=== PATIENT | male | born 1940 | race Caucasian/White ===

== ENCOUNTER 2017-12-02 16:37 | Outpatient (REF) | payer MEDICARE, MEDICAID, SELFPAY ==
[2017-12-02 21:56] LABS: Absolute Basophil Count 0.01 k/cumm (0.0-0.2); Absolute Lymphocyte Count 0.54 k/cumm (1.2-3.4); Absolute Monocyte Count 0.43 k/cumm (0.11-0.7); Absolute Neutrophil Count 4.64 k/cumm (1.2-6.7); Basophils % 0.2; HCT 35.9 % (40.0-50.0); Lymphocytes % 9.6; Mean Corp. HGB Concentration 33.4 g/dL (32.0-36.0); Mean Corpuscular Hemoglobin 30.6 pg (27.0-33.0); Mean Corpuscular Volume 91.6 fL (80-95); Mean Platelet Volume 9.5 fL (8.0-11.0); Monocytes % 7.7; Neutrophils % 82.5; Platelet Count 282 x1000/uL (130-400); RBC 3.92 m/cumm (4.50-6.00); RBC Distribution Width 12.9 % (11.8-14.1); White Blood Cell Count 5.62 k/cumm (4.4-10.8)
[2017-12-02 22:34] LABS: ALT 14 U/L (12-78); AST 14 U/L (15-37); Albumin 3.6 g/dL (3.4-5.0); Alkaline Phosphatase 154 U/L (46-116); BUN 10 mg/dL (7-18); Bilirubin, Total 0.3 mg/dL (0.2-1.0); CREATININE 0.82 mg/dL (0.70-1.30); Calcium 8.2 mg/dL (8.5-10.1); Chloride 93 mmol/L (98-107); Ferritin 47 ng/mL (8-388); Glucose 82 mg/dL (70-100); Potassium 4.8 mmol/L (3.5-5.1); Sodium 129 mmol/L (136-145); Total Protein 6.9 g/dL (6.4-8.2); Vitamin B12 919 pg/mL (193-986)
== END 2017-12-02 16:57 ==
LOC: NCHCN 16:37
PROVIDERS: PCP Family Medicine; Referring Provider Family Medicine; Visit Provider Family Medicine
DX: D64.9 Anemia, unspecified (principal); D72.819 Decreased white blood cell count, unspecified; E87.1 Hypo-osmolality and hyponatremia; F20.9 Schizophrenia, unspecified
CPT/HCPCS: 80053; 82607; 82728; 82746; 85025

== ENCOUNTER 2019-01-07 09:23 | Outpatient (REF) | payer MEDICARE, MEDICAID, SELFPAY ==
[2019-01-07 18:59] LABS: HGB 11.5 g/dL (13.5-17.5); Mean Corp. HGB Concentration 33.8 g/dL (32.0-36.0); Mean Corpuscular Volume 88.8 fL (80-95); Mean Platelet Volume 9.7 fL (8.0-11.0); Platelet Count 254 x1000/uL (130-400); RBC 3.83 m/cumm (4.50-6.00); RBC Distribution Width 12.8 % (11.8-14.1); White Blood Cell Count 4.08 k/cumm (4.4-10.8)
[2019-01-07 19:09] LABS: ALT 13 U/L (16-63); AST 11 U/L (15-37); Albumin 3.4 g/dL (3.4-5.0); Alkaline Phosphatase 131 U/L (46-116); Anion Gap 8.4 mmol/L (3-11); BUN 8 mg/dL (7-18); Bilirubin, Total 0.5 mg/dL (0.2-1.0); CO2 25.6 mmol/L (21.0-32.0); CREATININE 0.98 mg/dL (0.70-1.30); Calcium 8.3 mg/dL (8.5-10.1); Chloride 94 mmol/L (98-107); Glucose 130 mg/dL (70-100); Potassium 4.2 mmol/L (3.5-5.1); Sodium 128 mmol/L (136-145)
[2019-01-11 11:20] LABS: PSA, Screening 0.6 ng/ml (0-6.5)
== END 2019-01-07 09:43 ==
LOC: NCHCN 09:23
PROVIDERS: PCP Family Medicine; Visit Provider Family Medicine
DX: I10 Essential (primary) hypertension (principal); D64.9 Anemia, unspecified; E87.1 Hypo-osmolality and hyponatremia; R35.8 Other polyuria; Z12.5 Encounter for screening for malignant neoplasm of prostate
CPT/HCPCS: 80053; 84153; 85027

== ENCOUNTER 2019-01-21 20:19 | Outpatient (REF) | payer MEDICARE, MEDICAID, SELFPAY ==
[2019-01-21 20:22] LABS: Bilirubin Negative (Negative); Blood Negative (Negative); Clarity Clear (Clear); Glucose Negative (Negative); Ketones Negative (Negative); Leukocyte Esterase Negative (Negative); Nitrite Negative (Negative); Specific Gravity 1.015 (1.005-1.025); Urobilinogen 0.2 EU/dL (Up TO 0.2); pH 7.5 (5-8)
== END 2019-01-21 20:39 ==
LOC: NCHCN 20:19
PROVIDERS: PCP Family Medicine; Visit Provider Family Medicine
DX: R35.8 Other polyuria (principal)
CPT/HCPCS: 81003

== ENCOUNTER 2019-02-22 08:50 | Outpatient (REF) | payer MEDICARE, MEDICAID, SELFPAY ==
[2019-02-22 21:49] LABS: HGB 12.6 g/dL (13.5-17.5)
[2019-02-22 22:30] LABS: Ferritin 55 ng/mL (26-388); Folate 9.7 ng/mL (8.6-20.0); Vitamin B12 651 pg/mL (193-986)
== END 2019-02-22 09:10 ==
LOC: NCHCN 08:50
PROVIDERS: PCP Family Medicine; Visit Provider Family Medicine
DX: D64.9 Anemia, unspecified (principal)
CPT/HCPCS: 82607; 82728; 82746; 85018

== ENCOUNTER 2019-10-07 12:23 | Outpatient (REF) | payer MEDICARE, MEDICAID, SELFPAY ==
[2019-10-07 19:36] LABS: HCT 32.5 % (40.0-50.0); MCH 31.2 pg (27.0-33.0); MCHC 33.8 % (32.0-36.0); MCV 92.1 fL (80-95); MPV 10.9 fL (8.0-11.0); Platelet Count 253 10^3/uL (130-400); RBC 3.53 10^6/uL (4.36-5.78); RDW 15.4 % (11.8-14.1); RDW-SD 51.6 fL; WBC 4.74 10^3/uL (4.4-10.8)
[2019-10-07 20:32] LABS: ALT 218 U/L (16-63); AST 150 U/L (15-37); Albumin 3.1 g/dL (3.4-5.0); Anion Gap 9.5 mmol/L (3-11); BUN 14 mg/dL (7-18); Bilirubin, Total 4.8 mg/dL (0.2-1.0); CO2 24.5 mmol/L (21.0-32.0); CREATININE 0.81 mg/dL (0.70-1.30); Calcium 8.6 mg/dL (8.5-10.1); Chloride 100 mmol/L (98-107); Glucose 84 mg/dL (74-106); Potassium 4.2 mmol/L (3.5-5.1); Sodium 134 mmol/L (136-145); Total Protein 6.6 g/dL (6.4-8.2)
[2019-10-07 20:46] LABS: Alkaline Phosphatase 1181 U/L (46-116)
== END 2019-10-07 12:43 ==
LOC: NCHCN 12:23
PROVIDERS: PCP Family Medicine; Visit Provider Family Medicine
DX: D64.9 Anemia, unspecified (principal); I10 Essential (primary) hypertension
CPT/HCPCS: 80053; 85027

== ENCOUNTER 2019-11-18 13:56 | Outpatient (REF) | payer MEDICARE, MEDICAID, SELFPAY ==
[2019-11-18 20:02] LABS: Abs Immature Grans 0.02 10^3/uL (0.0-0.06); Absolute Basophil Count 0.03 10^3/uL (0.0-0.2); Absolute Lymphocyte Count 0.39 10^3/uL (1.2-3.4); Absolute Monocyte Count 0.42 10^3/uL (0.1-0.8); Absolute Neutrophil Count 4.37 10^3/uL (1.2-6.7); Basophils % 0.6; HCT 30.6 % (40.0-50.0); HGB 10.3 g/dL (13.5-17.5); Immature Grans % 0.4; Lymphocytes % 7.5; MCH 31.9 pg (27.0-33.0); MCHC 33.7 % (32.0-36.0); MCV 94.7 fL (80-95); MPV 11.1 fL (8.0-11.0); Neutrophils % 83.5; Nucleated RBC 0 %; Platelet Count 242 10^3/uL (130-400); RBC 3.23 10^6/uL (4.36-5.78); RDW 15.1 % (11.8-14.1); RDW-SD 52.6 fL; WBC 5.23 10^3/uL (4.4-10.8)
[2019-11-18 20:22] LABS: ALT 146 U/L (16-63); AST 120 U/L (15-37); Albumin 2.5 g/dL (3.4-5.0); Alkaline Phosphatase 953 U/L (46-116); Anion Gap 6.3 mmol/L (3-11); BUN 11 mg/dL (7-18); Bilirubin, Total 6.8 mg/dL (0.2-1.0); CO2 28.7 mmol/L (21.0-32.0); Calcium 7.8 mg/dL (8.5-10.1); Chloride 99 mmol/L (98-107); Glucose 119 mg/dL (74-106); Lipase 43 U/L (73-393); Potassium 3.4 mmol/L (3.5-5.1); Sodium 134 mmol/L (136-145); Total Protein 6.1 g/dL (6.4-8.2)
== END 2019-11-18 14:16 ==
LOC: NCHCN 13:56
PROVIDERS: PCP Family Medicine; Visit Provider Family Medicine
DX: D64.9 Anemia, unspecified (principal); I10 Essential (primary) hypertension; R79.89 Other specified abnormal findings of blood chemistry
CPT/HCPCS: 80053; 83690; 85025

== ENCOUNTER 2020-02-01 04:14 | Outpatient (CLI) | payer MEDICARE, MEDICAID, SELFPAY ==
[2020-02-01 11:14] LABS: ALT 48 U/L (16-63); AST 36 U/L (15-37); Albumin 3.3 g/dL (3.4-5.0); Alkaline Phosphatase 362 U/L (46-116); Anion Gap 6.6 mmol/L (3-11); BUN 13 mg/dL (7-18); CO2 28.4 mmol/L (21.0-32.0); CREATININE 0.94 mg/dL (0.70-1.30); Calcium 8.4 mg/dL (8.5-10.1); Chloride 98 mmol/L (98-107); Glucose 104 mg/dL (74-106); Potassium 4.3 mmol/L (3.5-5.1); Sodium 133 mmol/L (136-145); Total Protein 7.3 g/dL (6.4-8.2)
== END 2020-02-01 04:34 ==
PROVIDERS: PCP Family Medicine; Visit Provider Internal Medicine Hematology & Oncology
DX: C22.1 Intrahepatic bile duct carcinoma (principal)
CPT/HCPCS: 36415; 80053

== ENCOUNTER 2020-02-22 02:51 | Outpatient (CLI) | payer MEDICARE, MEDICAID, SELFPAY ==
[2020-02-22 12:33] LABS: Abs Immature Grans 0.02 10^3/uL (0.0-0.06); Absolute Basophil Count 0.01 10^3/uL (0.0-0.2); Absolute Monocyte Count 0.45 10^3/uL (0.1-0.8); Absolute Neutrophil Count 3.68 10^3/uL (1.2-6.7); Basophils % 0.2; HCT 30.1 % (40.0-50.0); HGB 10.8 g/dL (13.5-17.5); Immature Grans % 0.4; Lymphocytes % 8.8; MCH 30.7 pg (27.0-33.0); MCHC 35.9 % (32.0-36.0); MCV 85.5 fL (80-95); MPV 10.2 fL (8.0-11.0); Monocytes % 9.9; Neutrophils % 80.7; Nucleated RBC 0 %; Platelet Count 253 10^3/uL (130-400); RBC 3.52 10^6/uL (4.36-5.78); RDW 16.7 % (11.8-14.1); RDW-SD 50.7 fL; WBC 4.56 10^3/uL (4.4-10.8)
[2020-02-22 12:54] LABS: ALT 245 U/L (16-63); AST 172 U/L (15-37); Albumin 2.5 g/dL (3.4-5.0); Anion Gap 6.9 mmol/L (3-11); BUN 13 mg/dL (7-18); CO2 26.1 mmol/L (21.0-32.0); CREATININE 0.77 mg/dL (0.70-1.30); Calcium 8.2 mg/dL (8.5-10.1); Chloride 100 mmol/L (98-107); Glucose 95 mg/dL (74-106); Potassium 3.2 mmol/L (3.5-5.1); Sodium 133 mmol/L (136-145); Total Protein 6.5 g/dL (6.4-8.2)
[2020-02-22 13:03] LABS: Alkaline Phosphatase 1155 U/L (46-116)
[2020-02-22 13:04] LABS: Bilirubin, Total 24.9 mg/dL (0.2-1.0)
== END 2020-02-22 03:11 ==
PROVIDERS: PCP Family Medicine; Visit Provider Internal Medicine Hematology & Oncology
DX: C22.1 Intrahepatic bile duct carcinoma (principal)
CPT/HCPCS: 36415; 80053; 85025

== ENCOUNTER 2020-03-14 03:20 | Outpatient (CLI) | payer MEDICARE, MEDICAID, SELFPAY ==
[2020-03-14 13:30] LABS: Abs Immature Grans 0.02 10^3/uL (0.0-0.06); Absolute Basophil Count 0.06 10^3/uL (0.0-0.2); Absolute Eosinophil Count 0.04 10^3/uL (0.0-0.7); Absolute Lymphocyte Count 0.66 10^3/uL (1.2-3.4); Absolute Monocyte Count 0.44 10^3/uL (0.1-0.8); Absolute Neutrophil Count 3.17 10^3/uL (1.2-6.7); Basophils % 1.4; Eosinophils % 0.9; HCT 32.9 % (40.0-50.0); HGB 10.9 g/dL (13.5-17.5); Immature Grans % 0.5; MCH 31.6 pg (27.0-33.0); MCHC 33.1 % (32.0-36.0); MCV 95.4 fL (80-95); MPV 9.6 fL (8.0-11.0); Neutrophils % 72.2; Nucleated RBC 0 %; Platelet Count 278 10^3/uL (130-400); RBC 3.45 10^6/uL (4.36-5.78); RDW 15.9 % (11.8-14.1); RDW-SD 55.9 fL; WBC 4.39 10^3/uL (4.4-10.8)
[2020-03-14 13:50] LABS: ALT 60 U/L (16-63); AST 50 U/L (15-37); Albumin 2.8 g/dL (3.4-5.0); Alkaline Phosphatase 362 U/L (46-116); Anion Gap 4.3 mmol/L (3-11); BUN 18 mg/dL (7-18); CO2 27.7 mmol/L (21.0-32.0); Calcium 8.2 mg/dL (8.5-10.1); Chloride 99 mmol/L (98-107); Glucose 126 mg/dL (74-106); Potassium 4.6 mmol/L (3.5-5.1); Sodium 131 mmol/L (136-145)
== END 2020-03-14 03:40 ==
PROVIDERS: PCP Family Medicine; Visit Provider Internal Medicine Hematology & Oncology
DX: C22.1 Intrahepatic bile duct carcinoma (principal)
CPT/HCPCS: 36415; 80053; 85025

== ENCOUNTER 2020-04-11 03:15 | Outpatient (CLI) | payer MEDICARE, MEDICAID, SELFPAY ==
[2020-04-11 09:36] LABS: Abs Immature Grans 0.01 10^3/uL (0.0-0.06); Absolute Basophil Count 0.03 10^3/uL (0.0-0.2); Absolute Monocyte Count 0.38 10^3/uL (0.1-0.8); Absolute Neutrophil Count 3.73 10^3/uL (1.2-6.7); Basophils % 0.6; HCT 38.3 % (40.0-50.0); HGB 12.9 g/dL (13.5-17.5); Immature Grans % 0.2; Lymphocytes % 10.8; MCH 31.5 pg (27.0-33.0); MCHC 33.7 % (32.0-36.0); MCV 93.6 fL (80-95); MPV 9.1 fL (8.0-11.0); Monocytes % 8.2; Neutrophils % 80.2; Nucleated RBC 0 %; Platelet Count 199 10^3/uL (130-400); RBC 4.09 10^6/uL (4.36-5.78); RDW 13.3 % (11.8-14.1); RDW-SD 45.9 fL; WBC 4.65 10^3/uL (4.4-10.8)
[2020-04-11 10:29] LABS: Albumin 3.4 g/dL (3.4-5.0); BUN 14 mg/dL (7-18); Glucose 110 mg/dL (74-106); Potassium 4.3 mmol/L (3.5-5.1)
[2020-04-11 10:47] LABS: ALT 25 U/L (16-63); AST 20 U/L (15-37); Alkaline Phosphatase 176 U/L (46-116); Anion Gap 5.1 mmol/L (3-11); Bilirubin, Total 1.2 mg/dL (0.2-1.0); CO2 29.9 mmol/L (21.0-32.0); CREATININE 0.9 mg/dL (0.70-1.30); Calcium 8.5 mg/dL (8.5-10.1); Chloride 98 mmol/L (98-107); Sodium 133 mmol/L (136-145); Total Protein 7.1 g/dL (6.4-8.2)
== END 2020-04-11 03:16 | disposition home or self-care (01) ==
LOC: LBO 03:15
PROVIDERS: Internal Medicine Hematology & Oncology; PCP Family Medicine; Visit Provider Family Medicine
DX: C22.1 Intrahepatic bile duct carcinoma (principal)
CPT/HCPCS: 36415; 80053; 85025

== ENCOUNTER 2020-05-29 03:47 | Outpatient (CLI) | payer MEDICARE, MEDICAID, SELFPAY ==
[2020-05-29 10:12] LABS: Abs Immature Grans 0.01 10^3/uL (0.0-0.06); Absolute Basophil Count 0.04 10^3/uL (0.0-0.2); Absolute Eosinophil Count 0.06 10^3/uL (0.0-0.7); Absolute Monocyte Count 0.44 10^3/uL (0.1-0.8); Absolute Neutrophil Count 3.27 10^3/uL (1.2-6.7); Basophils % 0.9; Eosinophils % 1.4; HCT 37.3 % (40.0-50.0); HGB 12.4 g/dL (13.5-17.5); Immature Grans % 0.2; Lymphocytes % 9.5; MCH 30.2 pg (27.0-33.0); MCHC 33.2 % (32.0-36.0); MPV 9.2 fL (8.0-11.0); Monocytes % 10.4; Neutrophils % 77.6; Nucleated RBC 0 %; Platelet Count 194 10^3/uL (130-400); RDW 12.2 % (11.8-14.1); RDW-SD 40.8 fL; WBC 4.22 10^3/uL (4.4-10.8)
[2020-05-29 10:30] LABS: ALT 83 U/L (16-63); AST 54 U/L (15-37); Albumin 3.1 g/dL (3.4-5.0); Alkaline Phosphatase 422 U/L (46-116); Anion Gap 3.9 mmol/L (3-11); BUN 12 mg/dL (7-18); Bilirubin, Total 0.8 mg/dL (0.2-1.0); CO2 30.1 mmol/L (21.0-32.0); CREATININE 0.9 mg/dL (0.70-1.30); Calcium 8.7 mg/dL (8.5-10.1); Chloride 96 mmol/L (98-107); Glucose 120 mg/dL (74-106); Potassium 4.5 mmol/L (3.5-5.1); Sodium 130 mmol/L (136-145); Total Protein 7.4 g/dL (6.4-8.2)
== END 2020-05-29 03:48 | disposition home or self-care (01) ==
LOC: LBO 03:47
PROVIDERS: PCP Family Medicine; Visit Provider Internal Medicine Hematology & Oncology
DX: C22.1 Intrahepatic bile duct carcinoma (principal)
CPT/HCPCS: 36415; 80053; 85025

== ENCOUNTER 2020-06-26 03:20 | Outpatient (CLI) | payer MEDICARE, MEDICAID, SELFPAY ==
[2020-06-26 09:40] LABS: Abs Immature Grans 0.01 10^3/uL (0.0-0.06); Absolute Basophil Count 0.03 10^3/uL (0.0-0.2); Absolute Lymphocyte Count 0.62 10^3/uL (1.2-3.4); Absolute Neutrophil Count 3.52 10^3/uL (1.2-6.7); Basophils % 0.6; HGB 12.5 g/dL (13.5-17.5); Immature Grans % 0.2; Lymphocytes % 13.2; MCH 29.8 pg (27.0-33.0); MCHC 32.9 % (32.0-36.0); MCV 90.5 fL (80-95); MPV 9.2 fL (8.0-11.0); Monocytes % 10.7; Neutrophils % 75.3; Nucleated RBC 0 %; Platelet Count 209 10^3/uL (130-400); RDW 13.1 % (11.8-14.1); RDW-SD 43.6 fL; WBC 4.68 10^3/uL (4.4-10.8)
[2020-06-26 10:01] LABS: ALT 44 U/L (16-63); AST 28 U/L (15-37); Albumin 3.3 g/dL (3.4-5.0); Alkaline Phosphatase 290 U/L (46-116); Anion Gap 5.7 mmol/L (3-11); BUN 15 mg/dL (7-18); Bilirubin, Total 0.7 mg/dL (0.2-1.0); CO2 29.3 mmol/L (21.0-32.0); Calcium 8.8 mg/dL (8.5-10.1); Chloride 100 mmol/L (98-107); Glucose 156 mg/dL (74-106); Potassium 4.3 mmol/L (3.5-5.1); Sodium 135 mmol/L (136-145); Total Protein 7.6 g/dL (6.4-8.2)
== END 2020-06-26 03:21 | disposition home or self-care (01) ==
PROVIDERS: PCP Family Medicine; Visit Provider Internal Medicine Hematology & Oncology
DX: C22.1 Intrahepatic bile duct carcinoma (principal)
CPT/HCPCS: 36415; 80053; 85025

== ENCOUNTER 2020-07-18 03:47 | Outpatient (CLI) | payer MEDICARE, MEDICAID, SELFPAY ==
[2020-07-18 15:19] LABS: Abs Immature Grans 0.02 10^3/uL (0.0-0.06); Absolute Basophil Count 0.03 10^3/uL (0.0-0.2); Absolute Lymphocyte Count 0.68 10^3/uL (1.2-3.4); Absolute Monocyte Count 0.56 10^3/uL (0.1-0.8); Absolute Neutrophil Count 4.15 10^3/uL (1.2-6.7); Basophils % 0.6; HCT 35.9 % (40.0-50.0); HGB 12.2 g/dL (13.5-17.5); Immature Grans % 0.4; Lymphocytes % 12.5; MCH 30.3 pg (27.0-33.0); MCV 89.3 fL (80-95); MPV 9.1 fL (8.0-11.0); Monocytes % 10.3; Neutrophils % 76.2; Nucleated RBC 0 %; Platelet Count 243 10^3/uL (130-400); RBC 4.02 10^6/uL (4.36-5.78); RDW 13.6 % (11.8-14.1); WBC 5.44 10^3/uL (4.4-10.8)
[2020-07-18 15:45] LABS: ALT 29 U/L (16-63); AST 20 U/L (15-37); Albumin 3.2 g/dL (3.4-5.0); Alkaline Phosphatase 238 U/L (46-116); Anion Gap 7.4 mmol/L (3-11); BUN 16 mg/dL (7-18); Bilirubin, Total 0.5 mg/dL (0.2-1.0); CO2 27.6 mmol/L (21.0-32.0); CREATININE 0.9 mg/dL (0.70-1.30); Calcium 8.6 mg/dL (8.5-10.1); Chloride 95 mmol/L (98-107); Glucose 102 mg/dL (74-106); Potassium 4.8 mmol/L (3.5-5.1); Sodium 130 mmol/L (136-145); Total Protein 6.8 g/dL (6.4-8.2)
== END 2020-07-18 03:48 | disposition home or self-care (01) ==
LOC: LBO 03:47
PROVIDERS: Internal Medicine Hematology & Oncology; PCP Family Medicine; Visit Provider Psychiatry & Neurology Psychiatry
DX: C22.1 Intrahepatic bile duct carcinoma (principal)
CPT/HCPCS: 36415; 80053; 85025

== ENCOUNTER 2020-08-08 03:01 | Outpatient (CLI) | payer MEDICARE, MEDICAID, SELFPAY ==
[2020-08-08 10:18] LABS: ALT 20 U/L (16-63); AST 15 U/L (15-37); Albumin 3.3 g/dL (3.4-5.0); Alkaline Phosphatase 200 U/L (46-116); Anion Gap 8.6 mmol/L (3-11); BUN 11 mg/dL (7-18); Bilirubin, Total 0.5 mg/dL (0.2-1.0); CO2 29.4 mmol/L (21.0-32.0); CREATININE 0.9 mg/dL (0.70-1.30); Calcium 8.6 mg/dL (8.5-10.1); Chloride 95 mmol/L (98-107); Glucose 105 mg/dL (74-106); Potassium 4.7 mmol/L (3.5-5.1); Sodium 133 mmol/L (136-145); Total Protein 7.1 g/dL (6.4-8.2)
[2020-08-08 11:28] LABS: Abs Immature Grans 0.01 10^3/uL (0.0-0.06); Absolute Basophil Count 0.03 10^3/uL (0.0-0.2); Absolute Lymphocyte Count 0.39 10^3/uL (1.2-3.4); Absolute Monocyte Count 0.47 10^3/uL (0.1-0.8); Absolute Neutrophil Count 3.96 10^3/uL (1.2-6.7); Basophils % 0.6; HCT 36.3 % (40.0-50.0); HGB 12.2 g/dL (13.5-17.5); Immature Grans % 0.2; MCHC 33.6 % (32.0-36.0); MCV 89.4 fL (80-95); MPV 9.1 fL (8.0-11.0); Monocytes % 9.7; Neutrophils % 81.5; Nucleated RBC 0 %; Platelet Count 254 10^3/uL (130-400); RBC 4.06 10^6/uL (4.36-5.78); RDW 13.1 % (11.8-14.1); RDW-SD 43.3 fL; WBC 4.86 10^3/uL (4.4-10.8)
== END 2020-08-08 03:02 | disposition home or self-care (01) ==
LOC: LBO 03:01
PROVIDERS: PCP Family Medicine; Visit Provider Internal Medicine Hematology & Oncology
DX: C22.1 Intrahepatic bile duct carcinoma (principal)
CPT/HCPCS: 36415; 80053; 85025

== ENCOUNTER 2020-08-15 11:48 | Emergency (ER) | payer MEDICARE, MEDICAID, SELFPAY ==
[2020-08-15 12:01] VITALS: BP 161/72; PULSE 57; RESP 20; TEMP 36.4; O2SAT 98
--- NOTE | 2020-08-15 12:18 | W.ED.GENAD ---
Discharge Plan Disposition Patient Disposition: [facility] Condition: Serious Discharge Details Clinical Impression: Inguinal hernia with strangulation Primary Care Provider: Clarissa Meier V ED Provider: Ry Mejia Home Meds and New Rx's Prescriptions: No Action amantadine HCl 100 mg capsule 50 mg PO BID RF: 0 atenolol 25 mg tablet 25 mg PO DAILY RF: 0 ferrous gluconate 324 mg (37.5 mg iron) tablet 324 mg PO DAILY RF: 0 lisinopril 20 mg tablet 20 mg PO DAILY RF: 0 tamsulosin 0.4 mg capsule 0.4 mg PO DAILY RF: 0 B-complex with vitamin C Tablet 1 tab PO DAILY RF: 0 omeprazole [Prilosec] 40 MG capsule,delayed release(DR/EC) 40 mg PO DAILY RF: 0 olanzapine [Zyprexa] 7.5 MG tablet 7.5 mg PO HS RF: 0 Metamucil 283 GM powder 1 tbsp PO DAILY RF: 0 docusate sodium [Colace] 100 MG capsule 100 mg PO DAILY RF: 0 Fish Oil 1 EACH capsule 1 ea PO BID RF: 0 Discharge Data Discharge Date/Time-TO BE ENTERED AT DEPARTURE: 08/15/20 21:12 Medical Decision Making <Va Pedro MD - Last Filed: 08/21/20 09:25> Geno Kelley is an 80-year-old man with a history of GERD, schizophrenia, cholangiocarcinoma who presented to the emergency department for scrotal and lower extremity edema, unknown onset, worsening recently but improved since yesterday. On exam patient is elderly, minimally verbal to me, says no when asked if he has any pain but does not answer other questions. Per caregiver this is his mental baseline. There is significant scrotal edema, scrotum and testicles generally tender to palpation, patient grimacing throughout exam. There is no erythema, lesions, or overlying skin changes of the scrotum. Normal examination of the penis. Abdominal exam is benign. 1+ pitting edema bilateral lower extremities, marginally worse on the last. DP pulses intact and symmetric. No apparent posterior calf tenderness to palpation. Concern for metabolic/lyte derangement, inguinal hernia, other. Doubt testicular torsion, orchitis, other infectious etiology of scrotal edema. Possible CHF, though unlikely given no respiratory complaints and patient lying flat in bed as usual at night. Exam/history at this time is not consistent with acute coronary syndrome, fourniers gangrene, sepsis, pulmonary embolism. Plan for IV placement, CT abdomen/pelvis, screening labs, UA. Will send D-dimer to evaluate for lower extremity DVT. CT shows inguinal hernia. This is not reducible by me. I consulted of surgery. Dr. Harvey at bedside to evaluate the patient. Patient signed out to Dr. Mejia at time of shift change with surgery consultation pending. Medical Records Medical records reviewed: Yes I reviewed the patient's medical records. Imaging Data Radiologic Study: Attestation: I personally reviewed and interpreted this imaging study as follows: Radiologist's impression: EXAM: CT ABDOMEN PELVIS W CLINICAL HISTORY: scrotal swelling TECHNIQUE: Imaging Protocol: Axial computed tomography images with coronal and sagittal reformatted images were created and reviewed CONTRAST MATERIAL: Intravenous: Omnipaque 350 Contrast volume:100 mL Oral: No COMPARISON: CT ABD PELVIS WITH CONTRAST from 06/11/[address] ABD/PELVIS W CONTRAST from 11/11/2019 FINDINGS: The examination is limited due to patient motion artifact. ABDOMEN: Lung Bases: Stable dependent atelectatic changes are seen in the lung bases. There is persistent soft tissue surrounding the distal thoracic aorta which is unchanged. Liver: There has been interval placement of a biliary stent. There is persistent mild dilatation of the left intrahepatic bile ducts. No measurable mass. Portal, Superior Mesenteric, and Splenic Veins: Unremarkable. Gallbladder and Biliary Tract: The gallbladder is distended. No stones are identified. There is a question of mild thickening of the wall of the fundus of the gallbladder. Pancreas: Normal density, no abnormal calcifications or inflammatory process. Mild pancreatic atrophy. Spleen: Normal. Adrenals: No masses seen. Kidneys: Normal size, contour and axis. No radiodense stones or obstructive uropathy. Stable exophytic hypodense lesion of the posterior aspect of the left kidney. Hounsfield units of 43. No further follow-up is recommended. Abdominal Aorta: Abdominal portion non-dilated. Atherosclerosis. Bowel: There is a left inguinal hernia containing unremarkable loops of small bowel. No evidence of strangulation or obstruction is identified. There is diverticulosis of the sigmoid colon but no evidence of acute diverticulitis. No evidence of appendicitis. There is a large hiatal hernia. There is a large amount of stool in the colon. Peritoneal Cavity: No ascites, collection or mesenteric inflammatory response. No free air. Lymph Nodes: Within normal limits. Bones: Degenerative changes are seen in the spine. Old compression deformities are seen at T9 and T11. Soft Tissues: There is a fat containing right inguinal hernia. PELVIS: Bladder: The urinary bladder is distended bladder diverticula are present. Reproductive Organs: Unremarkable as visualized. Lymph Nodes: Within normal limits. Bones: Please see above. IMPRESSION: 1. Large left inguinal hernia extending into the left scrotal sac. The hernia contains an unremarkable loop of small bowel. No evidence of bowel obstruction or strangulation. 2. Interval placement of a biliary stent. Improvement in the degree of right biliary ductal dilatation. 3. Stable findings in the abdomen and pelvis as described above. 4. Results of this exam have been verbally communicated with provider. Exam(s) US EXTREMITY VENOUS BI EXAM: US EXTREMITY VENOUS BI CLINICAL HISTORY: b/l leg swelling. TECHNIQUE: Bilateral lower extremity venous ultrasound performed using grayscale, color-flow, and spectral Doppler analysis. COMPARISON: No exams were available for comparison FINDINGS: The bilateral common femoral, femoral and popliteal veins demonstrate normal compressibility, augmentation, and color Doppler. The posterior tibial veins are patent. The saphenofemoral junctions are unremarkable. There is a 2.8 x 0.8 x 2.9 cm right George's cyst. The soft tissues are unremarkable. IMPRESSION: Right: Negative for DVT Left: Negative for DVT Lab Data Lab results reviewed: Yes I reviewed the patient's lab results. Labs: Laboratory Tests Range/Units 08/15/20 08/15/20 08/15/20 12:20 12:20 12:20 WBC (4.4-10.8) 10^3/uL 4.15 L RBC (4.36-5.78) 10^6/uL 3.93 L Hgb (13.5-17.5) g/dL 11.9 L Hct (40.0-50.0) % 35.5 L MCV (80-95) fL 90.3 MCH (27.0-33.0) pg 30.3 MCHC (32.0-36.0) % 33.5 RDW (11.8-14.1) % 13.1 Plt Count (130-400) 10^3/uL 214 MPV (8.0-11.0) fL 8.8 Immature Gran % 0.2 Neutrophils % 79.5 Lymphocytes % 11.6 Monocytes % 8.0 Eosinophils % 0.0 Basophils % 0.7 Nucleated RBC % % 0 Absolute Neutrophils (1.2-6.7) 10^3/uL 3.30 Absolute Lymphocytes (1.2-3.4) 10^3/uL 0.48 L Absolute Monocytes (0.1-0.8) 10^3/uL 0.33 Absolute Eosinophils (0.0-0.7) 10^3/uL 0.00 Absolute Basophils (0.0-0.2) 10^3/uL 0.03 D-Dimer (<500) ng/mlFEU 1177 H Sodium (136-145) mmol/L 131 L Potassium (3.5-5.1) mmol/L 4.3 Chloride (98-107) mmol/L 96 L Carbon Dioxide (21.0-32.0) mmol/L 29.5 Anion Gap (3-11) mmol/L 5.5 BUN (7-18) mg/dL 12 Creatinine (0.70-1.30) mg/dL 0.9 Estimated GFR/1.73 m2 (mL/min/1.73m2) >= 60.00 Glucose (74-106) mg/dL 147 H Calcium (8.5-10.1) mg/dL 8.3 L Total Bilirubin (0.2-1.0) mg/dL 0.4 AST (15-37) U/L 15 ALT (16-63) U/L 15 L Alkaline Phosphatase (46-116) U/L 172 H NT-Pro-B Natriuret Pep (<300) pg/mL 493 H Total Protein (6.4-8.2) g/dL 7.1 Albumin (3.4-5.0) g/dL 3.1 L TSH (0.36-3.74) uIU/mL 4.71 H Free T4 (0.76-1.46) ng/dL 1.12 Urine Color (Yellow) Urine Clarity (Clear) Urine pH (5-8) Ur Specific [place] (1.005-1.025) Urine Protein (Negative) mg/dL Urine Ketones (Negative) mg/dL Urine Blood (Negative) Urine Nitrite (Negative) Urine Bilirubin (Negative) Urine Urobilinogen (Up TO 0.2) EU/dL Ur Leukocyte Esterase (Negative) Urine Glucose (Negative) mg/dL COVID-19 Source SARS-CoV-2 (PCR) Range/Units 08/15/20 08/15/20 13:15 15:40 WBC (4.4-10.8) 10^3/uL RBC (4.36-5.78) 10^6/uL Hgb (13.5-17.5) g/dL Hct (40.0-50.0) % MCV (80-95) fL MCH (27.0-33.0) pg MCHC (32.0-36.0) % RDW (11.8-14.1) % Plt Count (130-400) 10^3/uL MPV (8.0-11.0) fL Immature Gran % Neutrophils % Lymphocytes % Monocytes % Eosinophils % Basophils % Nucleated RBC % % Absolute Neutrophils (1.2-6.7) 10^3/uL Absolute Lymphocytes (1.2-3.4) 10^3/uL Absolute Monocytes (0.1-0.8) 10^3/uL Absolute Eosinophils (0.0-0.7) 10^3/uL Absolute Basophils (0.0-0.2) 10^3/uL D-Dimer (<500) ng/mlFEU Sodium (136-145) mmol/L Potassium (3.5-5.1) mmol/L Chloride (98-107) mmol/L Carbon Dioxide (21.0-32.0) mmol/L Anion Gap (3-11) mmol/L BUN (7-18) mg/dL Creatinine (0.70-1.30) mg/dL Estimated GFR/1.73 m2 (mL/min/1.73m2) Glucose (74-106) mg/dL Calcium (8.5-10.1) mg/dL Total Bilirubin (0.2-1.0) mg/dL AST (15-37) U/L ALT (16-63) U/L Alkaline Phosphatase (46-116) U/L NT-Pro-B Natriuret Pep (<300) pg/mL Total Protein (6.4-8.2) g/dL Albumin (3.4-5.0) g/dL TSH (0.36-3.74) uIU/mL Free T4 (0.76-1.46) ng/dL Urine Color (Yellow) Yellow Urine Clarity (Clear) Clear Urine pH (5-8) 7.0 Ur Specific [place] (1.005-1.025) 1.015 Urine Protein (Negative) mg/dL Negative Urine Ketones (Negative) mg/dL Negative Urine Blood (Negative) Negative Urine Nitrite (Negative) Negative Urine Bilirubin (Negative) Negative Urine Urobilinogen (Up TO 0.2) EU/dL 0.2 Ur Leukocyte Esterase (Negative) Negative Urine Glucose (Negative) mg/dL Negative COVID-19 Source Cancelled SARS-CoV-2 (PCR) Cancelled Anxiety <Ry Mejia DO - Last Filed: 08/15/20 20:13> Case was signed out to me by my colleague Dr. Paty Pedro. Please refer to her HPI, physical exam, assessment. At time of signout we were pending disposition. Patient has a notably complicated social scenario. 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 After a prolonged discussion between Dr. Harvey and [facility], [facility] surgical team has accepted the patient for transfer. Dr. Harvey manage this phone call, and transfer process. Patient will be transferred to [facility] once room becomes available. I have extensively reviewed the treatment plan and discharge instructions with the patient. I have addressed all patient concerns at this time. The patient was made aware of what symptoms to monitor for that would warrant a return to the emergency department. Discussed the plan with the patient, they demonstrate verbal understanding and agreement with our assessment and plan at this time. The documentation in this chart was dictated using [email or web address] dictation software. Please excuse any dictation errors. HPI <Va Pedro MD - Last Filed: 08/21/20 09:25> General Date/Time Provider Initiated Documentation: 08/15/20 11:49. Limitations to Documentation: physical limitation. Information obtained by: RN/MD (caregiver), RN notes reviewed and old records reviewed. HPI Narrative: Keshav Kelley is an 80-year-old man with history of schizophrenia, GERD, cholangiocarcinoma presenting to emergency department with edema. Patient is accompanied by his caregiver. Patient lives in a residential facility and needs assistance with his ADLs secondary to his chronic mental illness. Patient's caregiver reports that recently he has been noted to have lower extremity edema, and also scrotal edema. His caregiver also reports that his nurses have noticed intermittent strong urine smell from patient over the past few months. Patient's caregiver is unsure when scrotal and lower extremity edema began, but seems to be acutely worsened over the past week or so. She does note that the scrotal and lower extremity edema seems improved from 1 to 2 days ago. Caregiver reports that patient is minimally verbal, always says no when asked about pain. She reports that he has seemed to be grimacing and more uncomfortable than usual lately. Has been eating and drinking as usual. No fever, vomiting, diarrhea, cough, shortness of breath, focal weakness noted by caregiver. Related Data Home Medications Medication Instructions Recorded Confirmed Fish Oil 1 ea PO BID 03/24/14 08/15/20 Metamucil 1 tbsp PO DAILY 03/24/14 08/15/20 docusate sodium [Colace] 100 mg PO DAILY tab-cap 03/24/14 08/15/20 olanzapine [Zyprexa] 7.5 mg PO HS tab-cap 03/24/14 08/15/20 omeprazole [Prilosec] 40 mg PO DAILY tab-cap 03/24/14 08/15/20 B-complex with vitamin C 1 tab PO DAILY 01/27/20 08/15/20 amantadine HCl 100 mg capsule 50 mg PO BID 01/27/20 08/15/20 atenolol 25 mg tablet 25 mg PO DAILY 01/27/20 08/15/20 ferrous gluconate 324 mg (37.5 mg 324 mg PO DAILY 01/27/20 08/15/20 iron) tablet lisinopril 20 mg tablet 20 mg PO DAILY 01/27/20 08/15/20 tamsulosin 0.4 mg capsule 0.4 mg PO DAILY 01/27/20 08/15/20 Allergies Allergy/AdvReac Type Severity Reaction Status Date / Time No Known Allergies Allergy Unverified 07/19/14 08:36 General Stated Complaint: GenMedical LOI: 3 Review of Systems <Va Pedro MD - Last Filed: 08/21/20 09:25> Narrative: Constitutional: denies fevers Eyes: denies eye pain ENT: denies ear pain, dental pain, sore throat Cardiovascular: denies chest pain, edema Respiratory: denies SOB, cough GI: denies abdominal pain, vomiting, diarrhea : denies flank pain MSK: denies back pain, neck pain, arthralgias, myalgias Skin: denies rash Neuro: denies headaches, numbness, weakness PFSH <Va Pedro MD - Last Filed: 08/21/20 09:25> Medical History (Updated 08/19/20 @ 18:08 by Jacinta Doty MD) Chronic anemia Colon polyp Elevated liver enzymes Fatigue associated with his cancer Fear of other medical care long-standing worse now that he is sick and requiring more visits GERD (gastroesophageal reflux disease) Glaucoma Goals of care, counseling/discussion Focus is on keeping Keshav comfortable and living well Need to address CODE STATUS and COLST History of biliary stent insertion previously jaundiced stent keeping him comfortable metal working better, it appears Hypoalbuminemia Hyponatremia Palliative care patient Patient has guardian Milena Keenan NEED TO ADDRESS CODE STATUS AT NEXT VISIT will require petition to the court Person, living, residential institution [facility] for persons with MH problems Schizophrenia Surgical History Colonoscopy - MAC EGD - MAC S/P ERCP 11/27 with first stent, plastic; 02/26 with second stent, metal Family History Sister No problems noted. Social History Smoking/Tobacco Use Status: Current every day Smoking risk assessment performed?: Yes Drug use: Never Caregiver/Support person: Yes (Lives [facility] [place]) Household members: other Details: other residents of [facility] Housing: assisted living facility Number of Children: 0 Communication Needs: Hard of Hearing and Corrective Lenses Education Level: high school Do you need help understanding health information?: Always current occupation: disabled for many years What is your relationship status?: never How often do you talk on the phone with friends or family?: never How often do you get together with friends or relatives?: never Panel score (0-1 are the most socially isolated patients): 0 What type of physical activity do you participate in: walking and irregular exercise Duration: < 15 minutes/day Special jacob needs: No Seatbelt use: always Water heater temp set <120 deg: Yes Working smoke detector in home: Yes Fire extinguisher in home: Yes Firearms in home: No Do you feel safe at home: Yes Do you feel safe in your relationship?: Yes Additional Social history: Keshav lives at [facility] under the care of director Yasemin Braga and her staff. He has a public guardian, Milena Keenan. He has lived at for > 15 years. He is followed by his PCP, Dr Meier, who has cared for him for many years. Keshav has always had a very hard communicating. He likes to play cards. He speaks very quickly and slurs his words; Yasemin seems to understand nearly everything he says. He doesn't like going to doctors. He likes being left alone, except if playing cards. He hates being in pain. When he had his recent staging imaging, the nurses tried several times to put an IV in, and now he is very reluctant to have imaging again. He gets anxious easily and does not really understand what is wrong with him and what various treatment plans would entail. Exam <Va Pedro MD - Last Filed: 08/21/20 09:25> Narrative Exam Narrative: Constitutional: Chronically ill but acutely [id number], alert, answers no to all questions HENT: head atraumatic/normocephalic/normal inspection, mucous membranes moist Eyes: conjunctiva normal, sclera normal, pupils 3mm b/l Neck: no stridor, normal ROM, trachea midline Chest: normal inspection Resp: normal work of breathing, LCTAB Cardio: normal rate, normal rhythm, no murmur appreciated GI: abdomen soft, non-tender, non-distended : significant scrotal edema, scrotum and testicles generally tender to palpation, patient grimacing throughout exam. There is no erythema, lesions, crepitus or overlying skin changes of the scrotum. Normal examination of the penis 1+ pitting edema bilateral lower extremities, marginally worse on the last. DP pulses intact and symmetric. No apparent posterior calf tenderness to palpation. Skin: warm, dry, normal color, no rash Neuro: alert, not altered, grossly non-focal, normal tone Ext: 1+ pitting edema bilateral lower extremities, marginally worse on the last. DP pulses intact and symmetric. No apparent posterior calf tenderness to palpation Course <Va Pedro MD - Last Filed: 08/21/20 09:25> Vital Signs Vital signs: Vital Signs Temperature 36.4 C L 08/15/20 12:01 Pulse 57 L 08/15/20 12:01 Respiratory Rate 20 08/15/20 12:01 Blood Pressure 161/72 H 08/15/20 12:01 Pulse Oximetry 98 08/15/20 12:01 Temperature 36.4 C L 08/15/20 12:01 Temperature Source Skin 08/15/20 12:01 Pulse 57 L 08/15/20 12:01 Respiratory Rate 20 08/15/20 12:01 Respiratory Effort 08/15/20 12:09 Blood Pressure 161/72 H 08/15/20 12:01 Blood Pressure Position Supine 08/15/20 12:01 Pulse Oximetry 98 08/15/20 12:01 Oxygen Delivery Method Room Air 08/15/20 12:01 Oxygen Flow Rate 0 08/15/20 12:01 Sign Out <Va Pedro MD - Last Filed: 08/21/20 09:25> Sign Out Data: Sign Out Comment: Patient signed out to Dr. Mejia at time of shift change with recommendations from surgery pending Last updated by Va Pedro MD at 08/15/20 16:31
[2020-08-15 12:38] LABS: Abs Immature Grans 0.01 10^3/uL (0.0-0.06); Absolute Basophil Count 0.03 10^3/uL (0.0-0.2); Absolute Lymphocyte Count 0.48 10^3/uL (1.2-3.4); Absolute Monocyte Count 0.33 10^3/uL (0.1-0.8); Basophils % 0.7; HCT 35.5 % (40.0-50.0); HGB 11.9 g/dL (13.5-17.5); Immature Grans % 0.2; Lymphocytes % 11.6; MCH 30.3 pg (27.0-33.0); MCHC 33.5 % (32.0-36.0); MCV 90.3 fL (80-95); MPV 8.8 fL (8.0-11.0); Neutrophils % 79.5; Nucleated RBC 0 %; Platelet Count 214 10^3/uL (130-400); RBC 3.93 10^6/uL (4.36-5.78); RDW 13.1 % (11.8-14.1); RDW-SD 43.8 fL; WBC 4.15 10^3/uL (4.4-10.8)
[2020-08-15 12:57] LABS: ALT 15 U/L (16-63); AST 15 U/L (15-37); Albumin 3.1 g/dL (3.4-5.0); Alkaline Phosphatase 172 U/L (46-116); Anion Gap 5.5 mmol/L (3-11); BUN 12 mg/dL (7-18); Bilirubin, Total 0.4 mg/dL (0.2-1.0); CO2 29.5 mmol/L (21.0-32.0); CREATININE 0.9 mg/dL (0.70-1.30); Calcium 8.3 mg/dL (8.5-10.1); Chloride 96 mmol/L (98-107); Glucose 147 mg/dL (74-106); NT-proBNP 493 pg/mL (<300); Potassium 4.3 mmol/L (3.5-5.1); Sodium 131 mmol/L (136-145); TSH (W/Ref FT4) 4.71 uIU/mL (0.36-3.74); Total Protein 7.1 g/dL (6.4-8.2)
--- NOTE | 2020-08-15 13:00 | DI.CT_ITS ---
Exam(s) CT ABDOMEN PELVIS W EXAM: CT ABDOMEN PELVIS W CLINICAL HISTORY: scrotal swelling TECHNIQUE: Imaging Protocol: Axial computed tomography images with coronal and sagittal reformatted images were created and reviewed CONTRAST MATERIAL: Intravenous: Omnipaque 350 Contrast volume:100 mL Oral: No COMPARISON: CT ABD PELVIS WITH CONTRAST from 06/11/[address] ABD/PELVIS W CONTRAST from 11/11/2019 FINDINGS: The examination is limited due to patient motion artifact. ABDOMEN: Lung Bases: Stable dependent atelectatic changes are seen in the lung bases. There is persistent soft tissue surrounding the distal thoracic aorta which is unchanged. Liver: There has been interval placement of a biliary stent. There is persistent mild dilatation of t he left intrahepatic bile ducts. No measurable mass. Portal, Superior Mesenteric, and Splenic Veins: Unremarkable. Gallbladder and Biliary Tract: The gallbladder is distended. No stones are identified. There is a que stion of mild thickening of the wall of the fundus of the gallbladder. Pancreas: Normal density, no abnormal calcifications or inflammatory process. Mild pancreatic atrophy . Spleen: Normal. Adrenals: No masses seen. Kidneys: Normal size, contour and axis. No radiodense stones or obstructive uropathy. Stable exophyti c hypodense lesion of the posterior aspect of the left kidney. Hounsfield units of 43. No further fol low-up is recommended. Abdominal Aorta: Abdominal portion non-dilated. Atherosclerosis. Bowel: There is a left inguinal hernia containing unremarkable loops of small bowel. No evidence of s trangulation or obstruction is identified. There is diverticulosis of the sigmoid colon but no eviden ce of acute diverticulitis. No evidence of appendicitis. There is a large hiatal hernia. There is a l arge amount of stool in the colon. Peritoneal Cavity: No ascites, collection or mesenteric inflammatory response. No free air. Lymph Nodes: Within normal limits. Bones: Degenerative changes are seen in the spine. Old compression deformities are seen at T9 and T11 . Soft Tissues: There is a fat containing right inguinal hernia. PELVIS: Bladder: The urinary bladder is distended bladder diverticula are present. Reproductive Organs: Unremarkable as visualized. Lymph Nodes: Within normal limits. Bones: Please see above. IMPRESSION: 1. Large left inguinal hernia extending into the left scrotal sac. The hernia contains an unremarkabl e loop of small bowel. No evidence of bowel obstruction or strangulation. 2. Interval placement of a biliary stent. Improvement in the degree of right biliary ductal dilatatio n. 3. Stable findings in the abdomen and pelvis as described above. 4. Results of this exam have been verbally communicated with provider. RADIATION DOSE DELIVERED: 1,412.11mGy.cm Total DLP DATA REPOSITORY: All CT scans at this facility are submitted to the National Radiology Data Registry (NRDR) Dose Index Registry (DIR) with the [employer] (ACR). RADIATION OPTIMIZATION: All CT scans at this facility use at least one of these dose optimization te chniques: automated exposure control; mA and/or kV adjustment per patient size (includes targeted exa ms where dose is matched to clinical indication); or iterative reconstruction.
[2020-08-15 13:10] LABS: D-Dimer 1177 ng/mlFEU (<500)
[2020-08-15 13:22] LABS: FREE T4 1.12 ng/dL (0.76-1.46)
[2020-08-15 13:25] LABS: Bilirubin Negative (Negative); Blood Negative (Negative); Clarity Clear (Clear); Glucose Negative (Negative); Ketones Negative (Negative); Leukocyte Esterase Negative (Negative); Nitrite Negative (Negative); Specific Gravity 1.015 (1.005-1.025); Urobilinogen 0.2 EU/dL (Up TO 0.2)
--- NOTE | 2020-08-15 13:30 | DI.US_ITS ---
Exam(s) US EXTREMITY VENOUS BI EXAM: US EXTREMITY VENOUS BI CLINICAL HISTORY: b/l leg swelling. TECHNIQUE: Bilateral lower extremity venous ultrasound performed using grayscale, color-flow, and sp ectral Doppler analysis. COMPARISON: No exams were available for comparison FINDINGS: The bilateral common femoral, femoral and popliteal veins demonstrate normal compressibility, augment ation, and color Doppler. The posterior tibial veins are patent. The saphenofemoral junctions are unr emarkable. There is a 2.8 x 0.8 x 2.9 cm right George's cyst. The soft tissues are unremarkable. IMPRESSION: Right: Negative for DVT Left: Negative for DVT DATA REPOSITORY:
[2020-08-15] MEDS: Omnipaque 350 MG/ML 100 ML BTL IJ (13:35)
[2020-08-15] MEDS: Normal Saline - Diluent 50 ML VIAL IV (13:36)
[2020-08-15 16:21] VITALS: RESP 16
[2020-08-15 16:27] VITALS: BP 177/79; PULSE 61; TEMP 36.7; O2SAT 97
--- NOTE | 2020-08-15 20:22 | SCONE_ITS ---
Date of service: 08/15/20 Time of Service: 20:22 Assessment and Plan Assessment and plan (1) Inguinal hernia with strangulation: Status: Acute (2) Goals of care, counseling/discussion: Status: Acute (3) Hypoalbuminemia: Status: Acute (4) Elevated liver enzymes: Status: Acute (5) Chronic anemia: Status: Acute (6) Palliative care patient: Status: Acute (7) Patient has guardian: Status: Chronic (8) History of biliary stent insertion: Status: Chronic (9) Fear of other medical care: Status: Acute (10) Person, living, residential institution: Status: Chronic (11) Fatigue: Status: Chronic (12) Cholangiocarcinoma: Status: Chronic (13) Weight loss, non-intentional: Status: Acute (14) Schizophrenia: Status: None (15) Glaucoma: Status: None History of Present Illness Narrative: Mr. Kelley is a 80-year-old male who came into the ER with sudden onset of left scrotal pain and left scrotal swelling, as noted per his G[facility] CHARGER at [facility]. He has a hx of history of schizophrenia and stage IV cholangiocarcinoma. Patient lives in a residential facility and needs assistance with his ADLs secon alejo to his chronic mental illness. Patient's caregiver reports that recently he has been noted an increase in scrotal swelling. Patient cannot give any history at all. There is no staff available to discuss his care when I arrived to see the patient. I did review the CT and examined the patient and he does have any acute incarcerated and strangulated left inguinal hernia. I did attempt to reduce the hernia. Patient was uncooperative and attempts at manual reduction were unsuccessful. I did review his [facility] chart and recommendations from surgical oncology, medical oncology, radiation oncology. The patient was not felt to be a surgical candidate from an oncologic standpoint, he was not felt to be a candidate for radiation and chemo. That such treatments would not add any survival or palliative benefit, and only cause more morbidity. I Did discuss the case with Dr. Valencia. She has seen the patient in consultation and he is a palliative care patient. He is not enrolled in hospice. He is still a full code. The patient is not able to give consent or verbalized understanding because of his mental illness. He is a altamirano of the [facility] and does have a guardian, Blayne Hinkle. We did discuss options for care. The pt cannot do palliative or hospice care at [facility]. He cannot return there is a postop patient, adn would have to go to a fdc until he is fully recovered. Dr. Valencia's recommendation was for admitting him as a CLIENT TECHNICAL SPECIALIST patient. She did have a plan of care for controlling his pain. I did discuss this extensively with Milena Jacob, his court appointed guardian. We discussed his options including surgery versus CLIENT TECHNICAL SPECIALIST. I did discuss the case with anesthesia as well. Fausto Rosado did review his chart. We do not have much information to go from a anesthesia standpoint. There is no echo. He has never had a stress test. He is been half a day smoker for all his life. He has never had a heart attack or stroke. He is not diabetic. He had a recent ERCP and tolerated the anesthesia well. I discussed the risks and benefits of surgery with his guardian; the risks and benefits of surgery including but not limited to: Bleeding, infection, pneumonia, blood clots. Complications of anesthesia including but not limited to: AK, CVA, . We discussed risks of complications of his specific surgery including damage to bowel, blood vessels, bladder, and possible need for bowel resection, possible need for colostomy, recurrence of the hernia, chronic pain, chronic numbness, also wound healing complications. He is anemic. He has stage IV cancer. It is documented in his chart that he has had marked fatigue/lethargy, poor appetite, and weight loss. He does not have ascites. He is a smoker. He is at risk for having wound complications. Regardless of the options patient cannot return to [facility]. They will not take him as a hospice or CLIENT TECHNICAL SPECIALIST patient. And they will not take him as a postop patient. Guardian did request transfer to [facility] and a second opinion. I was able to discuss the case with Dr. Fausto Palacios from general surgery at [facility]. He did explain the situation. He was able to talk to the caregiver and address some of her concerns. At this time he has consented to taking the patient in transfer to [facility] for surgical intervention. Arrangements have been made for patient to be transferred by ambulance to [facility]. He will be transferred to the ED at [facility]. Patient is stable for transfer at this time. Paperwork is completed. 3 hours is spent in consultation Consults Consult date: 08/15/20 Requesting physician: Ry Mejia Review of Systems Unobtainable due to mental condition and Unobtainable due to (I did review consultations from Jacinta Valencia/Dr. Baca/and tumor board ) [facility] Medical History (Updated 08/15/20 @ 20:41 by Brinda Harvey, ) Chronic anemia Colon polyp Elevated liver enzymes Fatigue associated with his cancer Fear of other medical care long-standing worse now that he is sick and requiring more visits GERD (gastroesophageal reflux disease) Glaucoma Goals of care, counseling/discussion Focus is on keeping Keshav comfortable and living well Need to address CODE STATUS and COLST History of biliary stent insertion previously jaundiced stent keeping him comfortable metal working better, it appears Hypoalbuminemia Hyponatremia Palliative care patient Patient has guardian Milena Keenan NEED TO ADDRESS CODE STATUS AT NEXT VISIT will require petition to the court Person, living, residential institution [facility] for persons with MH problems Schizophrenia Surgical History Colonoscopy - MAC EGD - MAC S/P ERCP 11/27 with first stent, plastic; 02/26 with second stent, metal Family History Sister No problems noted. Social History Smoking/Tobacco Use Status: Current every day Smoking risk assessment performed?: Yes Drug use: Never Caregiver/Support person: Yes ([place] Household members: other Details: other residents of [facility] Housing: assisted living facility Number of Children: 0 Communication Needs: Hard of Hearing and Corrective Lenses Education Level: high school Do you need help understanding health information?: Always current occupation: disabled for many years What is your relationship status?: never How often do you talk on the phone with friends or family?: never How often do you get together with friends or relatives?: never Panel score (0-1 are the most socially isolated patients): 0 What type of physical activity do you participate in: walking and irregular exercise Duration: < 15 minutes/day Special jacob needs: No Seatbelt use: always Water heater temp set <120 deg: Yes Working smoke detector in home: Yes Fire extinguisher in home: Yes Firearms in home: No Do you feel safe at home: Yes Do you feel safe in your relationship?: Yes Additional Social history: Keshav lives at [facility] under the care of director Yasemin Braga and her staff. He has a public guardian, Milena Keenan. He has lived at for > 15 years. He is followed by his PCP, Dr Meier, who has cared for him for many years. Keshav has always had a very hard communicating. He likes to play cards. He speaks very quickly and slurs his words; Yasemin seems to understand nearly everything he says. He doesn't like going to doctors. He likes being left alone, except if playing cards. He hates being in pain. When he had his recent staging imaging, the nurses tried several times to put an IV in, and now he is very reluctant to have imaging again. He gets anxious easily and does not really understand what is wrong with him and what various treatment plans would entail. Exam Narrative Exam Narrative: no jaundice Patient is not verbally communicative Const General: in distress and anxious Orientation: oriented to person Limitations: other limitations [facility] Head: normal to inspection Ears: hearing grossly normal bilaterally Other: no jaundice Resp Effort & Inspection: normal respiratory effort Auscultation: clear to auscultation bilaterally Cardio Rate: regular rate Rhythm: regular rhythm GI Auscultation: hypoactive bowel sounds Other: large left scrotal mass. + painful. Not reducible Results Last Vital Signs Temp 36.7 C 08/15/20 16:27 Pulse 61 08/15/20 16:27 Resp 16 08/15/20 16:21 BP 177/79 H 08/15/20 16:27 Pulse Ox 97 08/15/20 16:27 Labs Result diagrams: 08/15/20 12:20 08/15/20 12:20 Labs: Laboratory Results - last 24 hr 08/15/20 08/15/20 08/15/20 12:20 12:20 12:20 WBC 4.15 L RBC 3.93 L Hgb 11.9 L Hct 35.5 L MCV 90.3 MCH 30.3 MCHC 33.5 RDW 13.1 Plt Count 214 MPV 8.8 Immature Gran % 0.2 Neutrophils % 79.5 Lymphocytes % 11.6 Monocytes % 8.0 Eosinophils % 0.0 Basophils % 0.7 Nucleated RBC % 0 Absolute Neutrophils 3.30 Absolute Lymphocytes 0.48 L Absolute Monocytes 0.33 Absolute Eosinophils 0.00 Absolute Basophils 0.03 D-Dimer 1177 H Sodium 131 L Potassium 4.3 Chloride 96 L Carbon Dioxide 29.5 Anion Gap 5.5 BUN 12 Creatinine 0.9 Estimated GFR/1.73 m2 >= 60.00 Glucose 147 H Calcium 8.3 L Total Bilirubin 0.4 AST 15 ALT 15 L Alkaline Phosphatase 172 H NT-Pro-B Natriuret Pep 493 H Total Protein 7.1 Albumin 3.1 L TSH 4.71 H Free T4 1.12 Urine Color Urine Clarity Urine pH Ur Specific Warren Urine Protein Urine Ketones Urine Blood Urine Nitrite Urine Bilirubin Urine Urobilinogen Ur Leukocyte Esterase Urine Glucose 08/15/20 13:15 WBC RBC Hgb Hct MCV MCH MCHC RDW Plt Count MPV Immature Gran % Neutrophils % Lymphocytes % Monocytes % Eosinophils % Basophils % Nucleated RBC % Absolute Neutrophils Absolute Lymphocytes Absolute Monocytes Absolute Eosinophils Absolute Basophils D-Dimer Sodium Potassium Chloride Carbon Dioxide Anion Gap BUN Creatinine Estimated GFR/1.73 m2 Glucose Calcium Total Bilirubin AST ALT Alkaline Phosphatase NT-Pro-B Natriuret Pep Total Protein Albumin TSH Free T4 Urine Color Yellow Urine Clarity Clear Urine pH 7.0 Ur Specific Warren 1.015 Urine Protein Negative Urine Ketones Negative Urine Blood Negative Urine Nitrite Negative Urine Bilirubin Negative Urine Urobilinogen 0.2 Ur Leukocyte Esterase Negative Urine Glucose Negative
[2020-08-15 21:07] VITALS: BP 136/74; PULSE 68; RESP 18; TEMP 36.8; O2SAT 98
--- NOTE | 2020-08-16 21:20 | PCNE_ITS ---
Date of service: 08/15/20 Time of Service: 18:20 History of Present Illness History of Present Illness Chief Complaint: incarcerated inguinal hernia; cholangiocarcinoma Narrative: I was called by the ER staff about Mr Kelley's wishes. As a palliative care doctor, I have met with him; his caregiver, Yasemin Braga from [place]; his medical oncologist, Dr Tino Baca, and his state appointed guardian, Milena Keenan, (via [employer]). Keshav has an inoperable terminal cancer; he has not been able to receive any cancer-directed treatment--neither chemo nor radiation-- but he does have a biliary stent in place. The stent resolved his pain and jaundice. It was decided not to pursue further cancer treatment, in keeping with his wishes. He would not tolerate extensive surgery; he could not lie still for radiation therapy; having any medical procedures associated with chemotherapy, such as lab draws and restaging imaging, would not give him the quality of life he deserves nor would it extend his life significantly. Please see [facility] notes about these discussions. He lives in a [place] [facility]. He has lived there for about 15 years; he is followed in the community by his PCP, Dr Clarissa Meier. He loves to smoke and play cards. He is very limited in his ability to communicate. Those who know him well recognize that he is happy with things as they are; he hates change. He hates being in unfamiliar places. He hates going to doctors, having his blood drawn, being touched. He was diagnosed with an incarcerated hernia in the ER at [facility]. Dr Brinda Harvey was consulted. Based on my knowledge of Keshav, it seemed that any extensive surgery would not be his choice. He would want to return to [place], his [facility], if possible. This seems very unlikely. The options appear to be that he is admitted to [facility], put on aggressive pain management, and be allowed to in a facility close enough to [place] that his caregivers could visit him in his last days. Or he could have surgery, and hope that the outcome would not leave him with a colostomy. He would not do well with a colostomy bag, due to his chronic mental illness. Or, he could be transferred to a tertiary care center where his oncology team could work with psychiatry and surgery to help him through this crisis, and allow him ideally to return to [place] temporarily. It is clear that [facility] will not be able to care for him through the time of his . I went through these options with the ER provider, Dr Va Pedro; Keshav's guardian, Milena Black; his caregiver, Yasemin River, and Dr Harvey, his consulted surgeon at [facility]. If his guardian were to choose aggressive pain control instead of surgery, the palliative care team would be involved. Assessment and Plan Assessment and plan (1) Schizophrenia: Status: Chronic Assessment and plan: [place] [facility]. Cannot express his wishes. (2) Inguinal hernia with strangulation: Status: Acute Assessment and plan: Life threatening. Looking for guidance on how to proc eed. Doctors and caregivers trying to decide through the lens of what matters to Keshav, given that he already has a limited life expectancy. (3) Goals of care, counseling/discussion: Status: Acute (4) Patient has guardian: Status: Chronic (5) Palliative care patient: Status: Acute (6) Fear of other medical care: Status: Acute Assessment and plan: This is a major issue for Keshav. He gets very nervous and anxious when not in a familiar place. I am worried that even if he survives surgery, he will not be able to return to [place] in the future. State guardian doing her duty to decide on Keshav's behalf. He does NEED HIS COLST done; this needs to go through state process. [facility] Medical History (Updated 08/19/20 @ 18:08 by Jacinta Doty MD) Chronic anemia Colon polyp Elevated liver enzymes Fatigue associated with his cancer Fear of other medical care long-standing worse now that he is sick and requiring more visits GERD (gastroesophageal reflux disease) Glaucoma Goals of care, counseling/discussion Focus is on keeping Keshav comfortable and living well Need to address CODE STATUS and COLST History of biliary stent insertion previously jaundiced stent keeping him comfortable metal working better, it appears Hypoalbuminemia Hyponatremia Palliative care patient Patient has guardian Milena Keenan NEED TO ADDRESS CODE STATUS AT NEXT VISIT will require petition to the court Person, living, residential institution [facility] for persons with MH problems Schizophrenia Surgical History Colonoscopy - MAC EGD - MAC S/P ERCP 11/27 with first stent, plastic; 02/26 with second stent, metal Family History Sister No problems noted. Social History Smoking/Tobacco Use Status: Current every day Smoking risk assessment performed?: Yes Drug use: Never Caregiver/Support person: Yes (Lives at [place]) Household members: other Details: other residents of [facility] Housing: assisted living facility Number of Children: 0 Communication Needs: Hard of Hearing and Corrective Lenses Education Level: high school Do you need help understanding health information?: Always current occupation: disabled for many years What is your relationship status?: never How often do you talk on the phone with friends or family?: never How often do you get together with friends or relatives?: never Panel score (0-1 are the most socially isolated patients): 0 What type of physical activity do you participate in: walking and irregular exercise Duration: < 15 minutes/day Special jacob needs: No Seatbelt use: always Water heater temp set <120 deg: Yes Working smoke detector in home: Yes Fire extinguisher in home: Yes Firearms in home: No Do you feel safe at home: Yes Do you feel safe in your relationship?: Yes Additional Social history: Keshav lives at [facility] under the care of director Yasemin Braga and her staff. He has a public guardian, Milena Keenan. He has lived at for > 15 years. He is followed by his PCP, Dr Meier, who has cared for him for many years. Keshav has always had a very hard communicating. He likes to play cards. He speaks very quickly and slurs his words; Yasemin seems to understand nearly everything he says. He doesn't like going to doctors. He likes being left alone, except if playing cards. He hates being in pain. When he had his recent staging imaging, the nurses tried several times to put an IV in, and now he is very reluctant to have imaging again. He gets anxious easily and does not really understand what is wrong with him and what various treatment plans would entail. Results Last Vital Signs Temp 98.2 F 08/15/20 21:07 Pulse 68 08/15/20 21:07 Resp 18 08/15/20 21:07 BP 136/74 08/15/20 21:07 Pulse Ox 98 08/15/20 21:07 Labs Result diagrams: 08/15/20 12:20 08/15/20 12:20 Labs: Laboratory Results - last 24 hr 08/15/20 15:40 COVID-19 Source Cancelled SARS-CoV-2 (PCR) Cancelled
== END 2020-08-15 21:12 | disposition short-term general hospital (02) ==
PROVIDERS: Student in an Organized Health Care Education/Training Program; Emergency Provider Student in an Organized Health Care Education/Training Program; PCP Family Medicine
DX: K40.30 Unilateral inguinal hernia, with obstruction, without gangrene, not specified as recurrent (principal)
CPT/HCPCS: 80053; 87635; 99283; 99285; 74177; 81003; 83880; 84439; 84443; 85025; 85379; 93970; J3490

== ENCOUNTER 2020-09-04 03:32 | Outpatient (CLI) | payer MEDICARE, MEDICAID, SELFPAY ==
[2020-09-04 11:14] LABS: Abs Immature Grans 0.01 10^3/uL (0.0-0.06); Absolute Basophil Count 0.05 10^3/uL (0.0-0.2); Absolute Eosinophil Count 0.09 10^3/uL (0.0-0.7); Absolute Lymphocyte Count 0.64 10^3/uL (1.2-3.4); Absolute Neutrophil Count 3.78 10^3/uL (1.2-6.7); Eosinophils % 1.7; HCT 34.9 % (40.0-50.0); HGB 11.8 g/dL (13.5-17.5); Immature Grans % 0.2; Lymphocytes % 12.4; MCH 29.8 pg (27.0-33.0); MCHC 33.8 % (32.0-36.0); MCV 88.1 fL (80-95); MPV 8.7 fL (8.0-11.0); Monocytes % 11.6; Neutrophils % 73.1; Nucleated RBC 0 %; Platelet Count 228 10^3/uL (130-400); RBC 3.96 10^6/uL (4.36-5.78); RDW 12.9 % (11.8-14.1); RDW-SD 42.2 fL; WBC 5.17 10^3/uL (4.4-10.8)
[2020-09-04 11:30] LABS: ALT 15 U/L (16-63); AST 12 U/L (15-37); Albumin 3.1 g/dL (3.4-5.0); Alkaline Phosphatase 176 U/L (46-116); Anion Gap 10.3 mmol/L (3-11); BUN 11 mg/dL (7-18); Bilirubin, Total 0.5 mg/dL (0.2-1.0); CO2 23.7 mmol/L (21.0-32.0); Calcium 8.4 mg/dL (8.5-10.1); Chloride 96 mmol/L (98-107); Glucose 109 mg/dL (74-106); Potassium 4.7 mmol/L (3.5-5.1); Sodium 130 mmol/L (136-145); Total Protein 7.2 g/dL (6.4-8.2)
== END 2020-09-04 03:33 | disposition home or self-care (01) ==
LOC: LBO 03:32
PROVIDERS: PCP Family Medicine; Visit Provider Internal Medicine Hematology & Oncology
DX: C22.1 Intrahepatic bile duct carcinoma (principal)
CPT/HCPCS: 36415; 80053; 85025

== ENCOUNTER 2020-11-09 03:35 | Outpatient (CLI) | payer MEDICARE, MEDICAID, SELFPAY ==
[2020-11-09 10:44] LABS: Abs Immature Grans 0.02 10^3/uL (0.0-0.06); Absolute Basophil Count 0.04 10^3/uL (0.0-0.2); Absolute Lymphocyte Count 0.58 10^3/uL (1.2-3.4); Absolute Monocyte Count 0.51 10^3/uL (0.1-0.8); Absolute Neutrophil Count 4.59 10^3/uL (1.2-6.7); Basophils % 0.7; HCT 35.4 % (40.0-50.0); HGB 11.8 g/dL (13.5-17.5); Immature Grans % 0.3; Lymphocytes % 10.1; MCH 29.1 pg (27.0-33.0); MCHC 33.3 % (32.0-36.0); MCV 87.4 fL (80-95); MPV 8.5 fL (8.0-11.0); Monocytes % 8.9; Nucleated RBC 0 %; Platelet Count 224 10^3/uL (130-400); RBC 4.05 10^6/uL (4.36-5.78); RDW 12.9 % (11.8-14.1); RDW-SD 41.2 fL; WBC 5.74 10^3/uL (4.4-10.8)
[2020-11-09 12:06] LABS: ALT 20 U/L (16-63); AST 13 U/L (15-37); Albumin 3.1 g/dL (3.4-5.0); Alkaline Phosphatase 201 U/L (46-116); Anion Gap 4.3 mmol/L (3-11); BUN 13 mg/dL (7-18); Bilirubin, Total 0.5 mg/dL (0.2-1.0); CO2 29.7 mmol/L (21.0-32.0); Calcium 8.4 mg/dL (8.5-10.1); Chloride 96 mmol/L (98-107); Glucose 98 mg/dL (74-106); Potassium 4.9 mmol/L (3.5-5.1); Sodium 130 mmol/L (136-145); Total Protein 6.8 g/dL (6.4-8.2)
== END 2020-11-09 03:36 | disposition home or self-care (01) ==
LOC: LBO 03:35
PROVIDERS: PCP Family Medicine; Visit Provider Psychiatry & Neurology Psychiatry
DX: C22.1 Intrahepatic bile duct carcinoma (principal)
CPT/HCPCS: 36415; 80053; 85025

== ENCOUNTER → 2020-11-27 10:10 | Outpatient (BNVA) | payer MEDICARE, MEDICAID, SELFPAY | PROVIDERS: PCP Family Medicine; Referring Provider Family Medicine; Visit Provider Urology | DX: N40.1 Benign prostatic hyperplasia with lower urinary tract symptoms (principal); N13.8 Other obstructive and reflux uropathy | CPT/HCPCS: 99215 ==

== ENCOUNTER 2020-12-11 03:48 | Outpatient (CLI) | payer MEDICARE, MEDICAID, SELFPAY ==
[2020-12-11 09:54] LABS: Absolute Basophil Count 0.03 10^3/uL (0.0-0.2); Absolute Lymphocyte Count 0.49 10^3/uL (1.2-3.4); Absolute Monocyte Count 0.46 10^3/uL (0.1-0.8); Absolute Neutrophil Count 5.06 10^3/uL (1.2-6.7); Basophils % 0.5; HCT 36.6 % (40.0-50.0); HGB 12.1 g/dL (13.5-17.5); Lymphocytes % 8.1; MCH 28.9 pg (27.0-33.0); MCHC 33.1 % (32.0-36.0); MCV 87.6 fL (80-95); MPV 8.7 fL (8.0-11.0); Monocytes % 7.6; Neutrophils % 83.8; Nucleated RBC 0 %; Platelet Count 241 10^3/uL (130-400); RBC 4.18 10^6/uL (4.36-5.78); RDW 13.6 % (11.8-14.1); RDW-SD 43.8 fL; WBC 6.04 10^3/uL (4.4-10.8)
[2020-12-11 10:47] LABS: ALT 19 U/L (16-63); AST 7 U/L (15-37); Albumin 3.2 g/dL (3.4-5.0); Alkaline Phosphatase 185 U/L (46-116); Anion Gap 8.3 mmol/L (3-11); BUN 16 mg/dL (7-18); Bilirubin, Total 0.4 mg/dL (0.2-1.0); CO2 28.7 mmol/L (21.0-32.0); CREATININE 0.9 mg/dL (0.70-1.30); Calcium 8.6 mg/dL (8.5-10.1); Chloride 99 mmol/L (98-107); Glucose 119 mg/dL (74-106); Potassium 4.3 mmol/L (3.5-5.1); Sodium 136 mmol/L (136-145); Total Protein 7.1 g/dL (6.4-8.2)
== END 2020-12-11 03:49 | disposition home or self-care (01) ==
LOC: LBO 03:48
PROVIDERS: PCP Family Medicine; Visit Provider Internal Medicine Hematology & Oncology
DX: C22.1 Intrahepatic bile duct carcinoma (principal)
CPT/HCPCS: 36415; 80053; 85025

== ENCOUNTER 2021-01-09 02:25 | Outpatient (CLI) | payer MEDICARE, MEDICAID, SELFPAY ==
[2021-01-09 10:31] LABS: Abs Immature Grans 0.02 10^3/uL (0.0-0.06); Absolute Basophil Count 0.03 10^3/uL (0.0-0.2); Absolute Lymphocyte Count 0.64 10^3/uL (1.2-3.4); Absolute Monocyte Count 0.45 10^3/uL (0.1-0.8); Absolute Neutrophil Count 4.99 10^3/uL (1.2-6.7); Basophils % 0.5; HCT 37.3 % (40.0-50.0); HGB 12.3 g/dL (13.5-17.5); Immature Grans % 0.3; Lymphocytes % 10.4; MCH 29.6 pg (27.0-33.0); MCV 89.7 fL (80-95); MPV 8.5 fL (8.0-11.0); Monocytes % 7.3; Neutrophils % 81.5; Nucleated RBC 0 %; Platelet Count 240 10^3/uL (130-400); RBC 4.16 10^6/uL (4.36-5.78); RDW 13.6 % (11.8-14.1); RDW-SD 44.8 fL; WBC 6.13 10^3/uL (4.4-10.8)
[2021-01-09 10:45] LABS: ALT 26 U/L (16-63); AST 10 U/L (15-37); Albumin 3.1 g/dL (3.4-5.0); Alkaline Phosphatase 215 U/L (46-116); Anion Gap 5.7 mmol/L (3-11); BUN 13 mg/dL (7-18); Bilirubin, Total 0.5 mg/dL (0.2-1.0); CO2 28.3 mmol/L (21.0-32.0); CREATININE 0.9 mg/dL (0.70-1.30); Calcium 8.3 mg/dL (8.5-10.1); Chloride 98 mmol/L (98-107); Glucose 101 mg/dL (74-106); Potassium 4.6 mmol/L (3.5-5.1); Sodium 132 mmol/L (136-145); Total Protein 7.2 g/dL (6.4-8.2)
== END 2021-01-09 02:26 | disposition home or self-care (01) ==
LOC: LBO 02:25
PROVIDERS: Internal Medicine Hematology & Oncology; PCP Family Medicine; Visit Provider Psychiatry & Neurology Psychiatry
DX: C22.1 Intrahepatic bile duct carcinoma (principal)
CPT/HCPCS: 36415; 80053; 85025

== ENCOUNTER → 2021-01-12 14:35 | Outpatient (BNVA) | payer MEDICARE, MEDICAID, SELFPAY | PROVIDERS: PCP Family Medicine; Referring Provider Family Medicine; Visit Provider Urology | DX: N40.1 Benign prostatic hyperplasia with lower urinary tract symptoms (principal); N13.8 Other obstructive and reflux uropathy; Z79.899 Other long term (current) drug therapy | CPT/HCPCS: 99213 ==

== ENCOUNTER 2021-05-16 01:24 | Outpatient (CLI) | payer MEDICARE, MEDICAID, SELFPAY ==
--- NOTE | 2021-05-16 10:00 | DI.CT_ITS ---
Exam(s) CT ABDOMEN PELVIS W EXAM: CT ABDOMEN PELVIS W CLINICAL HISTORY: LT INGUINAL HERNIA, K40.90, CHOLANGIOCARCINOMA BILIARY TRACT, C22.1 TECHNIQUE: COMPARISON: CT CT ABDOMEN PELVIS W from 08/15/2020 FINDINGS: CT examination of the abdomen and pelvis was performed with bolus infusion of 100 cc of Omnipaque 350 . Images obtained through the lung bases show areas of apparent atelectasis and scarring, grossly unc hanged from prior scan of August 15 2020.. Note is again made of a biliary stent in position in this patient who has a reported history of chola ngiocarcinoma. There is increasing dilatation of left lobe intrahepatic ducts. There is increasing dilatation of the pancreatic duct and of the distal common bile duct. There is increasing dilatation of the gallbladder. There are 2 new heterogeneous hypoattenuating masses of the left hepatic lobe, the larger measuring a bout 25 millimeters in diameter and the smaller measuring about 15 millimeters in diameter. These ar e highly suspicious for metastatic disease. No gross portal or mesenteric adenopathy. No retroperitoneal adenopathy.. Spleen is unremarkable in appearance.. Adrenals appear normal bilaterally. Kidneys appear normal with no evidence of renal mass, hydronephrosis, or nephrolithiasis. Urinary bl adder is markedly distended and there appear to be multiple bladder diverticuli. There is bladder wa ll thickening. Findings are consistent with chronic bladder outlet obstruction.. . Abdominal aorta is of normal diameter and no abnormality is seen involving major visceral branches. . Appendix is normal. No evidence diverticulitis or bowel obstruction. There is a large left inguinal hernia which contains loops of small bowel which appear non strangulat ed period no other significant abdominal wall hernia seen. Note is made of a hydrocele in the scrotum .. Impression: Interval development of increasing biliary dilatation and new left lobe hepatic metastases in a patie nt with a history of cholangiocarcinoma.. RADIATION DOSE DELIVERED: 1,101.2mGy.cm Total DLP 1,101.2mGy.cm Total DLP !Error CTDIvol DATA REPOSITORY: All CT scans at this facility are submitted to the National Radiology Data Registry (NRDR) Dose Index Registry (DIR) with the [employer] (ACR). RADIATION OPTIMIZATION: All CT scans at this facility use at least one of these dose optimization te chniques: automated exposure control; mA and/or kV adjustment per patient size (includes targeted exa ms where dose is matched to clinical indication); or iterative reconstruction.
[2021-05-16] MEDS: Omnipaque 350 MG/ML 100 ML BTL IJ (10:13)
[2021-05-16] MEDS: Normal Saline Flush 10 ML SYR IVP (10:14)
[2021-05-16] MEDS: Breeza Beverage 473 ML BTL PO (10:15)
[2021-05-16] MEDS: Omnipaque 350 MG/ML 50 ML BTL PO (10:15)
== END 2021-05-16 01:44 ==
PROVIDERS: PCP Family Medicine; Visit Provider Family Medicine
DX: K40.90 Unilateral inguinal hernia, without obstruction or gangrene, not specified as recurrent (principal); C22.1 Intrahepatic bile duct carcinoma; R10.9 Unspecified abdominal pain; R18.8 Other ascites; R93.5 Abnormal findings on diagnostic imaging of other abdominal regions, including retroperitoneum
CPT/HCPCS: 80053; 83690; 85027; 74177; 85025; J3490; Q9967

== ENCOUNTER 2021-05-16 03:51 | Outpatient (CLI) | payer MEDICARE, MEDICAID, SELFPAY ==
[2021-05-16 08:35] LABS: Abs Immature Grans 0.02 10^3/uL (0.0-0.06); Absolute Basophil Count 0.03 10^3/uL (0.0-0.2); Absolute Lymphocyte Count 0.49 10^3/uL (1.2-3.4); Absolute Monocyte Count 0.41 10^3/uL (0.1-0.8); Absolute Neutrophil Count 4.62 10^3/uL (1.2-6.7); Basophils % 0.5; HCT 36.7 % (40.0-50.0); HGB 11.9 g/dL (13.5-17.5); Immature Grans % 0.4; Lymphocytes % 8.8; MCH 28.9 pg (27.0-33.0); MCHC 32.4 % (32.0-36.0); MCV 89.1 fL (80-95); MPV 9.4 fL (8.0-11.0); Monocytes % 7.4; Neutrophils % 82.9; Nucleated RBC 0 %; Platelet Count 246 10^3/uL (130-400); RBC 4.12 10^6/uL (4.36-5.78); RDW 13.5 % (11.8-14.1); RDW-SD 44.2 fL; WBC 5.57 10^3/uL (4.4-10.8)
[2021-05-16 08:49] LABS: ALT 19 U/L (16-63); AST 41 U/L (15-37); Albumin 2.5 g/dL (3.4-5.0); Alkaline Phosphatase 314 U/L (46-116); Anion Gap 8.8 mmol/L (3-11); BUN 11 mg/dL (7-18); Bilirubin, Total 0.6 mg/dL (0.2-1.0); CO2 27.2 mmol/L (21.0-32.0); CREATININE 0.9 mg/dL (0.70-1.30); Calcium 8.1 mg/dL (8.5-10.1); Chloride 104 mmol/L (98-107); Glucose 123 mg/dL (74-106); Lipase 33 U/L (73-393); Potassium 3.3 mmol/L (3.5-5.1); Sodium 140 mmol/L (136-145)
== END 2021-05-16 03:52 | disposition home or self-care (01) ==
LOC: LBO 03:51
PROVIDERS: PCP Family Medicine; Visit Provider Internal Medicine Hematology & Oncology
DX: C22.1 Intrahepatic bile duct carcinoma (principal); K40.90 Unilateral inguinal hernia, without obstruction or gangrene, not specified as recurrent; K21.9 Gastro-esophageal reflux disease without esophagitis
CPT/HCPCS: 80053; 83690; 85027; 74177; 85025; J3490; Q9967